=== PATIENT | male | born 1955 | race Caucasian/White ===

== ENCOUNTER 2017-12-12 10:07 | Emergency (ER) | payer BC, OTHER ==
[~2017-12-12] VITALS: Ht 180.3 cm; Wt 106.5 kg
[2017-12-12 10:09] VITALS: BP 162/90; PULSE 69; RESP 18; TEMP 97.6; O2SAT 100
[2017-12-12] MEDS ORDERED: ADVA250A INH (10:15)
[2017-12-12] MEDS ORDERED: MONT10TA2 PO (10:16)
[2017-12-12] MEDS ORDERED: SIMV20TA PO (10:16)
[2017-12-12] MEDS ORDERED: TETANUS/DIPHTHERIA TOXOID ADULT 0.5 ML VIAL IM ONE (11:30)
[2017-12-12] MEDS ORDERED: IBUP1TAB7 PO (11:32)
--- NOTE | 2017-12-12 11:33 | PD ---
HPI Chief Complaint: Laceration/Skin Injury Time Seen by Provider: 10:24 Travel History International Travel<30 days: No Contact w/Intl Traveler<30days: No Traveled to known affect area: No History of Present Illness HPI Patient is a 62-year-old male presenting to emerge department for evaluation of a laceration. Patient was at work when he pressed on a piece of glass subsequently falling through sustaining a laceration to the bridge of his nose, a superficial abrasion to his forehead and left inner thigh. Patient denies any impacting head injury or loss of consciousness. He denies any dizziness, headache, nausea currently. He is uncertain when his last tetanus vaccine was updated. Patient denies being on any blood thinners. He rates his pain a 3 out of 10, he states it sore. He has no other complaints at this time. Symptom onset was sudden, symptoms are moderate in nature. PFSH Past Medical History Asthma: Yes Cardiac Catheterization: Yes High Cholesterol: Yes Diminished Hearing: Yes (hearing aides at home) Tetanus Vaccination: < 5 Years Influenza Vaccination: Yes Social History Alcohol Use: No Tobacco Use: No Substance Use: No Allergies-Medications (Allergen,Severity, Reaction): Coded Allergies: Penicillins (Verified Allergy, Unknown, 12/12/17) Reported Meds & Prescriptions Reported Meds & Active Scripts Active Reported Singulair (Montelukast Sodium) 10 Mg Tab 10 Mg PO DAILY Simvastatin 20 Mg Tab 20 Mg PO DAILY Advair Diskus Inh (Fluticasone-Salmeterol Inh) 250-50 Mcg/Blist Aer 1 Puff INH BID Rinse mouth after use. Review of Systems Except as stated in HPI: all other systems reviewed are Neg Skin: Positive Other (Abrasions and laceration) Physical Exam Narrative GENERAL: Well-developed, well-nourished, alert male. Presenting in no acute distress. SKIN: Warm and dry. HEAD: Atraumatic. Normocephalic. 1.5 cm laceration to the bridge of nose, 2 cm superficial abrasion to the right forehead, 4 cm superficial abrasion to the left inner thigh, superficial abrasions to hands. EYES: Pupils equal and round. No scleral icterus. No injection or drainage. ENT: No nasal bleeding or discharge. Mucous membranes pink and moist. NECK: Trachea midline. No JVD. CARDIOVASCULAR: Regular rate and rhythm. RESPIRATORY: No accessory muscle use. Clear to auscultation. Breath sounds equal bilaterally. GASTROINTESTINAL: Abdomen soft, non-tender, nondistended. Hepatic and splenic margins not palpable. MUSCULOSKELETAL: Extremities without clubbing, cyanosis, or edema. No obvious deformities. NEUROLOGICAL: Awake and alert. No obvious cranial nerve deficits. Motor grossly within normal limits. Five out of 5 muscle strength in the arms and legs. Normal speech. PSYCHIATRIC: Appropriate mood and affect; insight and judgment normal. Data Data Last Documented VS Vital Signs Date Time Temp Pulse Resp B/P (MAP) Pulse Ox O2 Delivery O2 Flow Rate FiO2 12/12/17 10:09 97.6 69 18 162/90 (114) 100 Orders Orders Tetanus/Diphtheria Tox Adult (Tetanus/Di (12/12/17 11:30) [facility] Medical Decision Making Medical Screen Exam Complete: Yes Emergency Medical Condition: Yes Interpretation(s) Vital Signs Date Time Temp Pulse Resp B/P (MAP) Pulse Ox O2 Delivery O2 Flow Rate FiO2 12/12/17 10:09 97.6 69 18 162/90 (114) 100 Differential Diagnosis Abrasion versus laceration versus contusion versus sprain versus strain versus fracture versus other. Narrative Course Patient is well-appearing 62-year-old male presenting to emergency department for evaluation after he pushed on glass subsequently falling through and cutting his face. Please see procedure report for laceration repair. Patient tolerated procedure well. Patient was advised that stitches will need be removed in 7-10 days. He can return to emergency department or follow-up with his primary doctor. Patient was encouraged to keep stitches clean and dry. He was encouraged to return to emergency department immediately for any new or worsening symptoms. Patient verbalized understanding of instructions. Patient stable for discharge. Procedures Procedure Narrative LACERATION LOCATION: Nose LENGTH: 1.5 cm NUMBER OF STITCHES/CORETTA: 7 stitches REPAIR: The area of the laceration was prepped with Betadine and sterilely draped. The laceration was infiltrated with 1% lidocaine. The wound was copiously irrigated and explored without evidence of foreign body, tendon injury or neurovascular injury. The wound was closed using 5-0 Prolene. This was a 1 layer repair. A sterile dressing was applied. The patient was advised to keep the dressing clean and dry. Patient tolerated the procedure well. Diagnosis Primary Impression: Laceration of nose Qualified Codes: S01.21XA - Laceration without foreign body of nose, initial encounter Additional Impression: Abrasions of multiple sites Referrals: Primary Care Physician 1 week Patient Instructions: Abrasion (GEN), Care For Your Stitches (ED), Facial Laceration (ED), General Instructions Additional Instructions: Follow-up with your primary doctor Stitches will need to be removed in 1 week, he can return to emergency department follow-up with your primary. Keep stitches clean and dry, cover with nonocclusive dressing if there is a chance of soiling. Return to emergency department immediately for any new worsening symptoms Med/Other Pt SpecificInfo: Prescription(s) given Scripts Ibuprofen (Ibuprofen) 800 Mg Tab 800 MG PO Q6HR Y for PAIN, #40 TAB 0 Refills Prov: Beatriz Melo 12/12/17 Disposition: 01 DISCHARGE HOME Condition: Stable Beatriz Melo Dec 12, 2017 11:33
== END 2017-12-12 12:26 | disposition home or self-care (01) ==
LOC: NEPD 10:07
DX: S01.21XA Laceration without foreign body of nose, initial encounter (principal); S70.312A Abrasion, left thigh, initial encounter; S60.519A Abrasion of unspecified hand, initial encounter; W18.02XA Striking against glass with subsequent fall, initial encounter; Y99.0 Civilian activity done for income or pay; E78.00 Pure hypercholesterolemia, unspecified; J45.909 Unspecified asthma, uncomplicated; Z88.0 Allergy status to penicillin; Z79.899 Other long term (current) drug therapy
CPT/HCPCS: 12011